=== PATIENT | male | born 1970 | race Caucasian/White ===

== ENCOUNTER 2023-10-13 01:25 | Day surgery (SDC) | payer OTHER, SELFPAY ==
[2023-09-25 13:38] VITALS: BMI 26.7
[2023-10-13 10:25] VITALS: BP 131/86; PULSE 74; RESP 18; TEMP 36.1; O2SAT 100
[2023-10-13] MEDS: LACTATED RINGERS 1,000 ML 150 ML IV CONT (10:37)
--- NOTE | 2023-10-13 11:19 | WPDANESEPPF ---
Anes - Initial Pre Proc Eval Procedure: Operation Date: 10/13/23 11:30 Proposed Procedures p Screening Colonoscopy - Thom Griggs DO Date/Time: 10/13/23 11:19 Surgeon: Thom Griggs DO Pre Op Diagnosis: Screening for malignant neoplasm of colon Patient Data Age: 52 Gender: M Height: 1.8 m Weight: 78.4 kg Last Vital Signs Temp 36.1 C L 10/13/23 10:25 Pulse 74 10/13/23 10:25 Resp 18 10/13/23 10:25 BP 131/86 10/13/23 10:25 Pulse Ox 100 10/13/23 10:25 O2 Del Method Room Air 10/13/23 10:25 Allergies Allergy/AdvReac Type Severity Reaction Status Date / Time No Known Allergies Allergy Verified 10/13/23 10:24 Home Medications Medication Instructions Recorded Confirmed Type No Home Medications 09/25/23 09/25/23 History Patient hx anesthesia problems: none Family hx anesthesia problems: none Results Review: All pre-operative results and documents have been reviewed as part of the pre-operative evaluation. [facility] Past Medical History Medical History BMI 25.0-25.9,adult Heel bone fracture Pain of truncal structure Rhinitis Screening for lipid disorders Screening for prostate cancer Family History Family History Grandparent Cerebrovascular accident Father Carcinoma of colon Mother Heart disease Sibling No problems noted. Social History Social History Smoking packs per day: 1 Smoking cigarettes per day: 20.0 Years smoked: 30 Smoking pack-years: 30.00 Smoking status: Current every day smoker Tobacco type: cigarettes Second hand tobacco smoke exposure: Yes Alcohol intake: current Alcohol use details: SOCIALLY Substance use: never Substance use type: does not use Do You Feel Safe in your Home?: Yes Lack of Transportation: No Lack of Food: Never True Current Housing: I Have Housing Concerned About Future Housing: No Difficulty Paying Gas/Electric Bills: No Difficulty Paying for Meds: No Currently Unemployed: No Education: High School Diploma/GED Difficulty w/ Childcare or Family Care: No Living arrangements: with family Occupation/Education: occupation 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 Informed Consent: The patient's anesthetic plan and its attendant risks and benefits were discussed with the patient/family/POA. Questions were solicited and answers provided to the satisfaction of the patient/family/POA.
--- NOTE | 2023-10-13 11:30 | PM.IMHP ---
H&P: HPI History of Present Illness Date/Time: 10/13/23 11:30 Chief Complaint: screening for colorectal cancer, family history of colon cancer in his father Narrative: this is a 52-year-old man who presents for colonoscopy. He has never had a colonoscopy before. His father from colon cancer. He denies any hematochezia or melena. Review of Systems Review of Systems: All systems reviewed & are unremarkable except as noted in HPI and below Constitutional: Constitutional: Denies chills, Denies fever(s), Denies headache(s) and Denies weight loss Eyes: Eyes: Denies change in vision ENT: Denies dizziness, Denies headache(s), Denies neck mass and Denies throat swelling Cardiovascular: Cardiovascular: Denies chest pain, Denies lightheadedness and Denies dyspnea Respiratory: Respiratory: Denies cough, Denies dyspnea and Denies wheezing Gastrointestinal: Gastrointestinal: Denies abdominal pain, Denies change in bowel habits, Denies nausea and Denies vomiting Genitourinary: Genitourinary: Denies hematuria and Denies dysuria Musculoskeletal: Musculoskeletal: Reports as per HPI Integumentary/Breasts: Skin/Breast: Reports as per HPI Neurologic: Denies dizziness and Denies headache(s) Allergic/Immunologic: Allergic/Immunologic: Denies throat swelling and Denies wheezing PMFSH Past Medical History Medical History BMI 25.0-25.9,adult Heel bone fracture Pain of truncal structure Rhinitis Screening for lipid disorders Screening for prostate cancer Family History Family History Grandparent Cerebrovascular accident Father Carcinoma of colon Mother Heart disease Sibling No problems noted. Social History Social History Smoking packs per day: 1 Smoking cigarettes per day: 20.0 Years smoked: 30 Smoking pack-years: 30.00 Smoking status: Current every day smoker Tobacco type: cigarettes Second hand tobacco smoke exposure: Yes Alcohol intake: current Alcohol use details: SOCIALLY Substance use: never Substance use type: does not use Do You Feel Safe in your Home?: Yes Lack of Transportation: No Lack of Food: Never True Current Housing: I Have Housing Concerned About Future Housing: No Difficulty Paying Gas/Electric Bills: No Difficulty Paying for Meds: No Currently Unemployed: No Education: High School Diploma/GED Difficulty w/ Childcare or Family Care: No Living arrangements: with family Occupation/Education: occupation 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): Male Spiritual care concerns: No Meds Home Medications and Allergies Home Medications Medication Instructions Recorded Confirmed Type No Home Medications 09/25/23 09/25/23 History Allergies Allergy/AdvReac Type Severity Reaction Status Date / Time No Known Allergies Allergy Verified 10/13/23 10:24 Vital Signs Vital Signs - 24 hr 10/13/23 10:25 Temperature 36.1 C L Pulse Rate 74 Respiratory Rate 18 Blood Pressure 131/86 Pulse Oximetry 100 Oxygen Delivery Room Air Exam Const: General: no acute distress and alert Orientation/consciousness: patient oriented x3 HENMT: Head: normocephalic and atraumatic Ears: hearing grossly normal bilaterally Face/Nose/Sinus: Normal nares present Mouth: Yes Normal oral and palatal mucosa present Eyes: Periorbital: periorbital findings normal Sclera: sclerae normal EOM: EOMs intact bilaterally Neck: Neck: normal visual inspection, no lymphadenopathy and trachea midline Chest: Chest palpation & inspection: normal inspection of the chest Resp: Effort & Inspection: normal respiratory effort Auscultation: clear to auscultation bilaterally Cardio: Jugular venous
[2023-10-13 12:25] VITALS: BP 102/70; PULSE 69; RESP 20; O2SAT 100
[2023-10-13 12:35] VITALS: BP 104/69; PULSE 70; RESP 20; O2SAT 92
[2023-10-13 12:45] VITALS: BP 128/84; PULSE 65; RESP 20; O2SAT 100
== END 2023-10-13 13:01 | disposition home or self-care (01) ==
PROVIDERS: PCP Family Medicine; Visit Provider Surgery
PROC: 0DJD8ZZ Inspection of Lower Intestinal Tract, Via Natural or Artificial Opening Endoscopic (ICD-10-PCS; CPT 45378; principal; 2023-10-13 11:30)
DX: Z12.11 Encounter for screening for malignant neoplasm of colon (principal); Z80.0 Family history of malignant neoplasm of digestive organs; F17.210 Nicotine dependence, cigarettes, uncomplicated
CPT/HCPCS: 45378; J2704; J7120

== ENCOUNTER 2025-01-24 05:09 | Emergency (ER) | payer OTHER, SELFPAY ==
[2025-01-24] VITALS (30 sets, daily range): BP systolic 131–161; BP diastolic 76–101; PULSE 71–98; RESP 16–18; TEMP 36.7; O2SAT 95–100
--- NOTE | ~2025-01-24 | XR_ITS ---
Examination: XR chest 2V Clinical History: cough and SOB Comparison: None Technique: PA and Lateral Findings: Cardiomediastinal silhouette normal size and configuration. Lungs clear. Focal trace of calcification lateral right upper lobe. No acute bony abnormality. Superior endplate deformity of what is probably T8. IMPRESSION: 1. No acute cardiopulmonary findings. Reviewed, dictated and finalized at location R. ODONTIST ASSISTANT
--- NOTE | ~2025-01-24 | CT_ITS ---
CT HEAD CTA NECK, CTA HEAD Clinical History: headache facial numbness-LT, HYPERTENSION Comparison: None TECHNIQUE: Unenhanced axial images skull base to vertex Coronal, sagittal reformats Helical images thoracic inlet to vertex IV contrast information not listed in PACS Coronal, sagittal reformats. Multi planar MIPS. CT images acquired with automatic exposure control for dose reduction DLP: 1710 mGy-cm Findings: CT HEAD Sulci, ventricles: Unremarkable. No intracerebral hemorrhage. No evidence acute territorial infarct. No mass effect, midline shift. Bony calvarium intact. Visualized paranasal sinuses: Ethmoid disease. Mastoid air cells: Clear. No abnormal foci of contrast enhancement. Patent dural venous sinuses. CTA NECK NASCET Criteria utilized Aortic arch: No aneurysm or dissection. Great vessel origins: No stenosis. CCAs: No dissection. No stenosis. Cervical ICAs: No dissection. No stenosis. Vertebral Arteries: Patent. Lung Apices: Minimal paraseptal emphysema. Thyroid: Unremarkable. Nodes: No enlarged nodes. Bones: No acute bony abnormality. CTA HEAD: Aneurysms: None. Intracranial ICAs: Patent, unremarkable. ACAs and their distal branches: Patent, unremarkable. A-Comm: Identified. Patent, unremarkable. MCAs and their distal branches: Patent, unremarkable. Basilar artery: Patent, unremarkable. surface water manager and their distal branches: Patent, unremarkable. P-Comms: Neither present. IMPRESSION: CT HEAD: 1. No acute intracranial findings. CTA NECK: 1. No ICA stenosis or other acute arterial abnormality. CTA HEAD: 1. No large vessel arterial occlusive disease or other acute findings. 2. No aneurysms. Reviewed, dictated and finalized at location R. R RELATIONS CONSULTANT
--- NOTE | 2025-01-24 07:52 | ED_ITS ---
HPI - General Adult General Chief complaint: Recheck/Abnormal Lab/Rx Stated complaint: htn, left side of face numb since thursday Time Seen by Provider: 01/24/25 06:57 History of Present Illness HPI narrative: 54-year-old male presenting to the emergency department for evaluation for left- sided facial pain. Patient began having dental pain Thursday and did have follow- up with the urgent care and was started Augmentin for suspected upper respiratory/ sinus infection. Patient was also noted to have elevated blood pressures in the office with a blood pressure approximately 160-170 systolic. Patient was advised to have a blood pressure cuff and to monitor this. Patient has no prior history hypertension. Patient is going to have follow-up with his primary care physician tomorrow regarding the blood pressure. Patient states today he was having persistent facial pain and noticed blood pressure was elevated so he presented to the emergency department for evaluation. Patient also does complain having cough and congestion that is been going on for 1 week. Patient is a smoker and does have audible wheeze on exam. Related Data Allergies Allergy/AdvReac Type Severity Reaction Status Date / Time No Known Allergies Allergy Verified 01/24/25 05:09 Review of Systems 2 Review of Systems: All systems reviewed & are unremarkable except as noted in HPI and below PMFSH Past Medical History Medical History BMI 25.0-25.9,adult Heel bone fracture Pain of truncal structure Rhinitis Screening for lipid disorders Screening for prostate cancer Family History Family History Grandparent Cerebrovascular accident Father Carcinoma of colon Mother Heart disease Sibling No problems noted. Social History Social History Smoking packs per day: 1 Smoking cigarettes per day: 20.0 Years smoked: 30 Smoking pack-years: 30.00 Smoking status: Current every day smoker Tobacco type: cigarettes Second hand tobacco smoke exposure: Yes Alcohol intake: current Alcohol use details: SOCIALLY Substance use: never Substance use type: does not use Do You Feel Safe in your Home?: Yes Lack of Transportation: No Lack of Food: Never True Current Housing: I Have Housing Concerned About Future Housing: No Difficulty Paying Gas/Electric Bills: No Difficulty Paying for Meds: No Currently Unemployed: No Education: High School Diploma/GED Difficulty w/ Childcare or Family Care: No Living arrangements: with family Occupation/Education: occupation 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 EYES: PERRLA/EOMI, conjunctivae clear. NOSE: Normal no drainage EARS:TMS clear with good light reflex. THROAT: Pharynx clear, no exudate. NECK: Supple. No adenopathy, no masses. RESPIRATORY: wheeze CARDIOVASCULAR: Regular rate and rhythm without murmurs rubs or gallops. ABDOMINAL: Soft, nontender, nondistended, normal bowel sounds MUSCULOSKELETAL: Moves all extremities. Strength/ROM intact, No edema, No calf tenderness. NEURO: Alert. Cranial nerves II through XII intact. Good gait. Good coordination SKIN: Warm, dry. Normal Color Course Vital Signs Vital signs: Vital Signs Pulse Oximetry 97 01/24/25 05:14 Temperature 98.0 F 01/24/25 05:57 Pulse Rate 78 01/24/25 10:15 Respiratory Rate 16 01/24/25 10:15 Blood Pressure 131/76 01/24/25 10:15 Pulse Oximetry 97 01/24/25 09:30 Oxygen Delivery Room Air 01/24/25 05:57 Medical Decision Making [facility] Narrative Medical decision making narrative: 54-year-old male present to the emergency department for evaluation left-sided facial pain that does seem consistent with satisfaction versus dental infection. Patient is neurologically intact has no focal neurologic abnormalities. patient had been started on Augmentin for the sinus infection. Patient will be started additional azithromycin to help cover for pneumonia. CTA was ordered due to the complaint intermittent headache with hypertension. Baseline labs are also being collected. on re-evaluation patient's blood pressure has significantly improved and has been 130 systolic for multiple measurements. Patient is currently afebrile with no leukocytosis hemoglobin of 15.0. Patient has normal kidney function with no other acute abnormalities on his CMP UA was negative for infection negative for protein. Patient was negative for influenza RSV and for COVID. Chest x-ray shows no acute cardiopulmonary malady but patient will be treated due to having cough congestion for greater than [address] head and neck was negative. Patient was updated the results of the workup. Patient will be discharged home with additional azithromycin, he is already taking Augmentin for sinusitis. Patient will have follow-up with his primary care physician tomorrow. Differential Diagnosis Differential Diagnosis: Hypertension, trigeminal neuralgia, sinus infection, dental infection, COPD, pneumonia Vital Signs Vital Signs: Vital Signs Pulse Oximetry 97 01/24/25 05:14 Temperature 98.0 F 01/24/25 05:57 Pulse Rate 78 01/24/25 10:15 Respiratory Rate 16 01/24/25 10:15 Blood Pressure 131/76 01/24/25 10:15 Pulse Oximetry 97 01/24/25 09:30 Oxygen Delivery Room Air 01/24/25 05:57 Lab Data Lab results reviewed: Yes I reviewed the patient's lab results. 01/24/25 07:55 01/24/25 07:55 Labs: Lab Results 01/24/25 01/24/25 Range/Units 07:55 07:57 WBC 8.2 (4.5-10.0) K/mm3 RBC 4.44 L (4.6-6.20) M/mm3 Hgb 15.0 (14.0-18.0) g/dL Hct 42.2 (42.0-52.0) % MCV 95.0 (80-100) fl MCH 33.8 (26-34) pg MCHC 35.5 (32-36) g/dl RDW 11.9 (11.5-14.5) % Plt Count 162 (150-375) k/mm3 MPV 9.0 (7.4-10.4) fl Immature Gran % (Auto) 0.4 (0-0.5) % Neut % (Auto) 72.7 (45.5-73.1) % Lymph % (Auto) 17.3 L (18.3-44.2) % [place] % (Auto) 7.4 (2.6-8.5) % Eos % (Auto) 1.8 (0-4.4) % Baso % (Auto) 0.4 (0.2-1.2) % Lymph # (Auto) 1.41 (0.9-3.2) K/mm3 [place] # (Auto) 0.6 (0.1-0.6) K/mm3 Eos # (Auto) 0.2 (0-0.3) K/mm3 Baso # (Auto) 0.0 (0.0-0.1) K/mm3 Abs Immat Gran (auto) 0.03 (0.00-0.031) K/mm3 Absolute Neuts (auto) 5.9 (1.3-6.7) K/mm3 Absolute Nucleated RBC 0.000 (0.0-0.012) K/mm3 Nucleated RBC % 0.0 (0.0-0.2) % PT 13.0 (11.1-14.7) Seconds INR 1.0 APTT 28.9 (22.3-36.8) Seconds Sodium 137 (137-145) mmol/L Potassium 4.4 (3.4-5.0) mmol/L Chloride 106 (98-107) mmol/L Carbon Dioxide 24 (22-30) mmol/L Anion Gap 7 (4-12) mmol/L BUN 11 (9-20) mg/dL Creatinine 0.77 (0.7-1.3) mg/dL Estim Creat Clear Calc 104 ml/min Estimated GFR > 60 (59 - ) Glucose 103 (65-110) mg/dL Calcium 9.0 (8.4-10.2) mg/dL Total Bilirubin 0.7 (0.2-1.3) mg/dL AST 33 (17-59) U/L ALT 22 (6-50) U/L Alkaline Phosphatase 80 (38-126) U/L Total Protein 7.3 (6.3-8.2) g/dL Albumin 4.2 (3.5-5.1) g/dL Urine Color Yellow (Yellow) Urine Appearance Clear (Clear) Urine pH 7.0 (5.0-9.0) Ur Specific [place] 1.011 (1.001-1.035) Urine Protein Negative (Negative) mg/dL Urine Glucose (UA) Negative (Negative) mg/dL Urine Ketones Negative (Negative) mg/dL Ur Blood (Man) Non-hemolyzed trace (Negative) Urine Nitrate Negative (Negative) Urine Bilirubin Negative (Negative) Urine Urobilinogen 0.2 (<2.0) mg/dL Leukocyte Esterase Rfl Negative (Negative) SE/UL Urine RBC 0-2 (0-2) /hpf Urine WBC 0-5 (0-3) /hpf Ur Squamous Epith Cells None seen (Few) /hpf Urine Bacteria None seen /hpf Urine Casts 0-2 Influenza A (RT-PCR) Negative (Negative) Influenza B (RT-PCR) Negative (Negative) RSV (RT-PCR) Negative (Negative) SARS-CoV-2 RNA (RT-PCR) Negative (Negative) Imaging Data My impression: Chest x-ray: No acute cardiopulmonary abnormality Radiologist's impression: Impressions Head/Neck CTA 01/24/25 08:42 IMPRESSION: CT HEAD: 1. No acute intracranial findings. CTA NECK: 1. No ICA stenosis or other acute arterial abnormality. CTA HEAD: 1. No large vessel arterial occlusive disease or other acute findings. 2. No aneurysms. Chest X-Ray 01/24/25 09:44 IMPRESSION: 1. No acute cardiopulmonary findings. Discharge Plan Discharge Clinical Impression: Pneumonia, HTN (hypertension) Patient Disposition: Home Condition: Stable Instructions: Antibiotic Form, Chronic Hypertension (DC), Pneumonia (ED) Additional Instructions: Continue taking your home Augmentin, add azithromycin. Albuterol inhaler as needed for shortness of breath. Continue to have close follow-up with her primary care physician for recommendation on starting blood pressure medications. Patient Language: Slovak Prescriptions: New azithromycin 250 mg tablet See Rx Instructions .ROUTE .COMPLEX Qty: 6 0RF Rx Instructions: For 250 mg dose pack: take 500 mg today (day 1), then 250 mg for 4 days (days 2-5) albuterol sulfate 90 mcg/actuation HFA aerosol inhaler 1 puff inhalation QID Qty: 6.7 0RF Follow-up/Referrals: Salazar Helms MD [Primary Care Provider, [facility]]
[2025-01-24] MEDS: ALBUTEROL SULFATE NEB 2.5 MG/3 ML INH 5 MG INHALATION (07:56)
[2025-01-24 08:02] LABS: Hematocrit 42.2 % (42.0-52.0); Hemoglobin 15.0 g/dL (14.0-18.0); Immature Granulocyte Percent A 0.4 % (0-0.5); Lymphocytes Absolute Auto 1.41 K/mm3 (0.9-3.2); Mean Corpuscular HGB Conc 35.5 g/dl (32-36); Mean Corpuscular Hemoglobin 33.8 pg (26-34); Mean Corpuscular Volume 95.0 fl (80-100); Nucleated Red Blood Cells Absolute Auto 0.000 K/mm3 (0.0-0.012); Nucleated Red Blood Cells Perc 0.0 % (0.0-0.2); Platelet Count Result 162 k/mm3 (150-375); Red Blood Count 4.44 M/mm3 (4.6-6.20); White Blood Count 8.2 K/mm3 (4.5-10.0)
[2025-01-24 08:06] LABS: Add Urine Microscopic? NO; Appearance Urine Clear (Clear); Glucose Urine UA Negative (Negative); Leukocyte Esterase Ur Negative LEU/UL (Negative); Nitrate Urine Negative (Negative); Non Pathogenic Casts 0-2; Specific Grav Ur 1.011 (1.001-1.035)
[2025-01-24 08:19] LABS: INR 1.0; Prothrombin Time 13.0 Seconds (11.1-14.7)
[2025-01-24 08:20] LABS: Alanine Aminotransferase 22 U/L (6-50); Albumin Level 4.2 g/dL (3.5-5.1); Alkaline Phosphatase 80 U/L (38-126); Anion Gap 7 mmol/L (4-12); Aspartate Amino Transferase 33 U/L (17-59); Bilirubin,Total 0.7 mg/dL (0.2-1.3); Blood Urea Nitrogen 11 mg/dL (9-20); Calcium 9.0 mg/dL (8.4-10.2); Carbon Dioxide 24 mmol/L (22-30); Chloride 106 mmol/L (98-107); Estimated CRCL calculation 104 ml/min; Estimated Glomerular Filt Rate > 60; Glucose 103 mg/dL (65-110); Potassium 4.4 mmol/L (3.4-5.0); Sodium 137 mmol/L (137-145); Total Protein 7.3 g/dL (6.3-8.2)
[2025-01-24 08:23] LABS: Partial Thromboplastin Time 28.9 Seconds (22.3-36.8)
[2025-01-24 08:48] LABS: Influenza A QL RT-PCR Negative (Negative); Influenza B QL RT-PCR Negative (Negative); RSV RNA, RT-PCR Negative (Negative); SARS-CoV-2 RNA PCR Negative (Negative)
[2025-01-24] MEDS: AZITHROMYCIN 250 MG TABLET 500 MG PO (08:51)
== END 2025-01-24 10:18 | disposition home or self-care (01) ==
PROVIDERS: Emergency Provider Emergency Medicine; PCP Family Medicine
DX: J18.9 Pneumonia, unspecified organism (principal); I10 Essential (primary) hypertension; Z20.822 Contact with and (suspected) exposure to COVID-19; F17.210 Nicotine dependence, cigarettes, uncomplicated
CPT/HCPCS: 36415; 70496; 70498; 71046; 80053; 81003; 85025; 85610; 85730; 87637; 94640; 99284; A9270; Q9967